=== PATIENT | male | born 1950 | race Caucasian/White ===

== ENCOUNTER 2019-12-16 13:22 | Emergency (ER) | payer OTHER ==
[~2019-12-16] VITALS: Ht 185.4 cm; Wt 120.0 kg
[2019-12-16] MEDS ORDERED: FLOMAX0.4 MG PO (13:49)
[2019-12-16] MEDS ORDERED: XARELTO2.5 MG (13:49)
[2019-12-16] MEDS ORDERED: DILTIAZEM HCL120 M1 PO (13:49)
[2019-12-16] MEDS ORDERED: FLONASE ALLERG9.9 ML NS (13:50)
[2019-12-16 14:26] LABS: EOS # 0.1 (0.04-0.40); EOS % 1.6 % (0.0-4.0); HEMATOCRIT 45.8 % (42.0-52.0); HEMOGLOBIN 15.4 g/dL (13.5-18.0); LYMPH# 1.3 (1.50-4.00); MEAN CELL VOLUME 96 fl (78-100); MEAN CORPUSCULAR HEMOGLOBIN 32 pg (27-31); MEAN CORPUSCULAR HGB CONC 34 g/dL (33-37); MONO # 0.6 (0.20-0.80); NEU # 3.2 (1.40-6.50); PLATELET COUNT 210 K/mm3 (130-400); RED BLOOD COUNT 4.75 M/mm3 (4.20-5.60); RED CELL DISTRIBUTION WIDTH 12.4 % (11.5-14.5); WHITE BLOOD COUNT 5.2 K/mm3 (4.8-10.8)
[2019-12-16 14:31] LABS: ALBUMIN 3.6 g/dL (3.4-4.8)
[2019-12-16 14:32] LABS: POTASSIUM 4.5 mmol/L (3.5-5.1)
[2019-12-16 14:33] LABS: CALCIUM 8.8 mg/dL (8.3-10.5)
[2019-12-16 14:36] LABS: TOTAL BILIRUBIN 0.8 mg/dL (0.2-1.2)
[2019-12-16 14:51] LABS: PROTHROMBIN TIME 15.6 SECONDS (9.0-12.0)
[2019-12-16] MEDS ORDERED: MORGIDOX 1X100100 MG PO (15:39)
[2019-12-16 15:51] VITALS: BP 109/76
== END 2019-12-16 16:07 | disposition home or self-care (01) ==
LOC: ED 13:22
PROVIDERS: Family Medicine
DX: R20.2 Paresthesia of skin (principal); R29.810 Facial weakness; G52.9 Cranial nerve disorder, unspecified; I48.91 Unspecified atrial fibrillation; Z79.01 Long term (current) use of anticoagulants; Z79.83 Long term (current) use of bisphosphonates

== ENCOUNTER 2024-01-17 07:50 | Outpatient (RCR) | payer OTHER ==
[~2024-01-17 07:50] MED LIST: DILTIAZEM HCL120 M1 PO; FLOMAX0.4 MG PO; FLONASE ALLERG9.9 ML NS; MORGIDOX 1X100100 MG PO; XARELTO2.5 MG
== END 2024-02-12 | disposition home or self-care (01) ==
LOC: CARDREHAB
DX: Z48.812 Encounter for surgical aftercare following surgery on the circulatory system (principal); Z98.890 Other specified postprocedural states